=== PATIENT | female | born 1975 | race Caucasian/White ===

== ENCOUNTER 2017-06-06 19:45 | Inpatient (IN) | payer BC ==
[~2017-06-06] VITALS: Ht 30.5 cm; Wt 77.6 kg
[2017-06-06] MEDS ORDERED: HYDROcodone-ACET 10/325MG TAB PO PRN (20:45)
[2017-06-06] MEDS ORDERED: hydrALAZINE HCL 20 MG/ML VL IV PRN (20:45)
[2017-06-06] MEDS ORDERED: DOCUSATE SOD 100 MG CAP PO PRN (20:45)
[2017-06-06] MEDS ORDERED: ALPRAZolam 0.25 MG TAB PO PRN (20:45)
[2017-06-06] MEDS ORDERED: ACETAMINOPHEN 325 MG TAB PO PRN (20:45)
[2017-06-06] MEDS ORDERED: MORPHINE SULFATE 10 MG/ML INJ 1ML SDV IV PRN (21:00)
[2017-06-06] MEDS ORDERED: NITROGLYCERIN 0.4 MG SL TAB SL PRN (21:00)
[2017-06-06 22:00] VITALS: BP 112/67
[2017-06-07 05:00] VITALS: BP 94/56
[2017-06-07 05:59] LABS: Basophils # (auto) 0.1 uL; Basophils % (auto) 0.8 % (0.0-2.0); Eosinophils # (auto) 0.2 uL; Hematocrit 34.6 % (36.0-46.0); Hemoglobin 10.9 g/dL (12.2-16.2); Lymphocytes # (auto) 2.9 uL; Lymphocytes % (auto) 33.6 % (10.0-50.0); Mean Corpuscular Hemoglobin 22.4 pg (28.0-32.0); Mean Corpuscular Hgb Conc. 31.6 g/dL (32.0-36.0); Mean Corpuscular Volume 70.8 fL (80.0-100.0); Monocytes # (auto) 0.9 uL; Monocytes % (auto) 9.9 % (0.0-12.0); Neutrophils # (auto) 4.7 uL; Neutrophils % (auto) 53.7 % (37.0-80.0); Platelet Count (auto) 260 10^3/uL (140-450); Red Blood Cells 4.89 10^6/uL (4.0-5.20); White Blood Cell 8.7 10^3/uL (4.4-10.8)
[2017-06-07 06:15] LABS: INR 1.04 (0.9-1.15); Prothrombin Time 11.3 sec (9.37-12.3)
[2017-06-07 06:19] LABS: Albumin 3.4 g/dL (3.4-5.0); BUN/Creatinine Ratio 19.8; Calcium 8.7 mg/dL (8.5-10.1); Potassium 3.9 mmol/L (3.5-5.1)
[2017-06-07 06:22] LABS: Bilirubin, Total 0.3 mg/dL (0.2-1.0); Total Protein 6.9 g/dL (6.4-8.2)
[2017-06-07 08:00] VITALS: BP 104/63
[2017-06-07 09:00] VITALS: BP 104/63
[2017-06-07] MEDS ORDERED: LIDOCAINE 2%HCL (LOCAL ANESTH.) INJ 20ML MDV ONE ×3 (11:44→16:09)
[2017-06-07 13:00] VITALS: BP 119/85
[2017-06-07] MEDS: SODIUM CHLORIDE 0.9% 1,000 ML IV SCH ×2 (15:29→18:12)
[2017-06-07] MEDS ORDERED: fentaNYL CITRATE 100 MCG/2 ML VL ONE (15:38)
[2017-06-07] MEDS ORDERED: MIDAZOLAM HCL 1MG/1ML-2 ML VIAL ONE ×2 (15:39→15:53)
[2017-06-07] MEDS ORDERED: ONDANSETRON HCL 4 MG/2 ML VIAL ONE (15:39)
[2017-06-07] MEDS ORDERED: ISOPROTERENOL IV SCH (16:00)
[2017-06-07] MEDS ORDERED: IOHEXOL 350 MG/ML 100ML IJ ONE (16:14)
[2017-06-07] MEDS ORDERED: HYDROmorphone HCL 2 MG/ML VL ONE (16:17)
[2017-06-07] MEDS ORDERED: ISOPROTERENOL HCL INJECTION 1 MG in D5W 5% 250 ML IV SCH (16:28)
[2017-06-07] MEDS ORDERED: ASPirin 325 MG TAB PO ONE (18:15)
[2017-06-07] MEDS: MORPHINE SULFATE 10 MG/ML INJ 1ML SDV IV PRN (20:15)
[2017-06-07 22:00] VITALS: BP 127/71
[2017-06-08] MEDS ORDERED: VITAMINS A & D (TOPICAL) OINT 5GM TOP ONE (01:09)
[2017-06-08] MEDS ORDERED: MORPHINE SULF INJ 2 MG/ML SYRINGE 1ML ONE (01:09)
[2017-06-08] MEDS: MORPHINE SULFATE 10 MG/ML INJ 1ML SDV IV PRN (01:19)
[2017-06-08] MEDS: SODIUM CHLORIDE 0.9% 1,000 ML IV SCH (03:45)
[2017-06-08 04:49] VITALS: BP 111/69
[2017-06-08 09:00] VITALS: BP 101/62
[2017-06-08] MEDS ORDERED: ASPirin 325 MG TAB PO SCH (10:00)
[2017-06-08 13:00] VITALS: BP 98/51
[2017-06-08 15:42] VITALS: BP 98/51
== END 2017-06-08 17:35 | disposition home or self-care (01) | DRG 274 ==
LOC: TELE-EAST 19:45
PROVIDERS: ADMIT Internal Medicine; ATTEND Internal Medicine
PROC: 02583ZZ Destruction of Conduction Mechanism, Percutaneous Approach (ICD-10-PCS; principal; 2017-06-07)
PROC: 02K83ZZ Map Conduction Mechanism, Percutaneous Approach (ICD-10-PCS; 2017-06-07)
PROC: 4A023FZ Measurement of Cardiac Rhythm, Percutaneous Approach (ICD-10-PCS; 2017-06-07)
PROC: 4A0234Z Measurement of Cardiac Electrical Activity, Percutaneous Approach (ICD-10-PCS; 2017-06-07)
DX: I49.3 Ventricular premature depolarization (principal); I47.2 Ventricular tachycardia; E87.6 Hypokalemia; I44.7 Left bundle-branch block, unspecified; Z82.49 Family history of ischemic heart disease and other diseases of the circulatory system; Z88.8 Allergy status to other drugs, medicaments and biological substances
CPT/HCPCS: 36415; 80053; 84702; 85025; 85610; 85730; 86850; 86900; 86901; 87081; 93005; 93654; 99152; J2250; J2405; J7060

== ENCOUNTER 2020-10-02 15:29 | Emergency (ER) | payer BC ==
[~2020-10-02] VITALS: Ht 167.6 cm; Wt 77.1 kg
[2020-10-02 16:32] LABS: Basophils # (auto) 0.1 10 ^3/uL (0-0.2); Eosinophils # (auto) 0 10 ^3/uL (0-0.8); Mean Corpuscular Hgb Conc. 31.3 g/dL (32.0-36.0); Neutrophils # (auto) 5.4 10 ^3/uL (1.6-8.6); Platelet Count (auto) 223 10^3/uL (140-450); Red Cell Distribution Width 19.1 % (11.8-14.3)
[2020-10-02 16:34] LABS: Basophils % (auto) 0.8 % (0.0-2.0); Eosinophils % (auto) 0.4 % (0.0-7.0); Hematocrit 27.1 % (36.0-46.0); Hemoglobin 8.5 g/dL (12.2-16.2); Lymphocytes # (auto) 0.7 10 ^3/uL (0.4-5.4); Lymphocytes % (auto) 10.9 % (10.0-50.0); Mean Corpuscular Hemoglobin 19.9 pg (28.0-32.0); Mean Corpuscular Volume 63.7 fL (80.0-100.0); Monocytes # (auto) 0.4 10 ^3/uL (0-1.3); Monocytes % (auto) 5.8 % (0.0-12.0); Neutrophils % (auto) 82.1 % (37.0-80.0); Red Blood Cells 4.26 10^6/uL (4.0-5.20); White Blood Cell 6.6 10^3/uL (4.4-10.8)
[2020-10-02 16:48] LABS: Albumin 3.3 g/dL (3.4-5.0); Potassium 3.7 mmol/L (3.5-5.1)
[2020-10-02 16:58] LABS: BUN/Creatinine Ratio 18.9; Bilirubin, Total 0.1 mg/dL (0.2-1.0); Total Protein 6.5 g/dL (6.4-8.2)
[2020-10-02 17:16] LABS: Urine Bacteria FEW /hpf (None Seen); Urine Blood Negative /uL (Negative); Urine Specific Gravity 1.007 (1.001-1.035); Urine WBC <1 /hpf (0 - 5)
[2020-10-02 17:27] LABS: Amphetamine Screen, Urine NEGATIVE (NEGATIVE); Barbiturate Scree,Urine NEGATIVE (NEGATIVE); Benzodiazephine Screen, Urine NEGATIVE (NEGATIVE); Cannabinoid Screen, Urine NEGATIVE (NEGATIVE); Cocaine Screen, Urine NEGATIVE (NEGATIVE); Opiate Scree,Urine NEGATIVE (NEGATIVE); Phencyclidine Screen, Urine NEGATIVE (NEGATIVE)
[2020-10-02 17:54] LABS: Salicylate < 1.7 mg/dL (2.8-20.0)
[2020-10-02 17:57] LABS: Acetaminophen < 2.0 ug/mL (10-30)
[2020-10-03] MEDS ORDERED: ACETAMINOPHEN 325 MG TAB PO ONE (00:30)
[2020-10-03] MEDS ORDERED: hydrOXYchloroQUINE SULFATE 200 MG TAB PO ONE (10:15)
[2020-10-04 09:31] VITALS: BP 138/68
== END 2020-10-04 15:20 | disposition home or self-care (01) ==
LOC: ER 15:29 → EDBD 15:29 → ER 10-04 15:20
DX: T14.91XA Suicide attempt, initial encounter (principal); T65.91XA Toxic effect of unspecified substance, accidental (unintentional), initial encounter; Z20.822 Contact with and (suspected) exposure to COVID-19; Y92.89 Other specified places as the place of occurrence of the external cause
CPT/HCPCS: 36415; 80053; 80307; 80320; 80329; 81001; 85025; 87426; 93005

== ENCOUNTER 2021-02-14 18:50 | Inpatient (IN) | payer BC ==
[~2021-02-14] VITALS: Ht 167.6 cm; Wt 81.6 kg
[2021-02-14 20:03] LABS: Eosinophils # (auto) 0 10 ^3/uL (0-0.8); Mean Corpuscular Hemoglobin 23.5 pg (28.0-32.0); Monocytes # (auto) 0.2 10 ^3/uL (0-1.3); Neutrophils # (auto) 5.5 10 ^3/uL (1.6-8.6)
[2021-02-14 20:04] LABS: Basophils # (auto) 0.1 10 ^3/uL (0-0.2); Basophils % (auto) 1.3 % (0.0-2.0); Eosinophils % (auto) 0.3 % (0.0-7.0); Hematocrit 34.7 % (36.0-46.0); Lymphocytes % (auto) 14.6 % (10.0-50.0); Mean Corpuscular Hgb Conc. 31.7 g/dL (32.0-36.0); Mean Corpuscular Volume 74.3 fL (80.0-100.0); Monocytes % (auto) 3.4 % (0.0-12.0); Neutrophils % (auto) 80.4 % (37.0-80.0); Red Blood Cells 4.67 10^6/uL (4.0-5.20); White Blood Cell 6.8 10^3/uL (4.4-10.8)
[2021-02-14 20:21] LABS: Red Cell Distribution Width 22.5 % (11.8-14.3)
[2021-02-14 20:52] LABS: Albumin 3.6 g/dL (3.4-5.0); Calcium 8.8 mg/dL (8.5-10.1); Potassium 3.9 mmol/L (3.5-5.1)
[2021-02-14 20:57] LABS: Bilirubin, Total 0.3 mg/dL (0.2-1.0); Blood Alcohol < 3.0 mg/dL (0-5); Magnesium 1.9 mg/dL (1.6-2.6); Total Protein 6.9 g/dL (6.4-8.2)
[2021-02-14] MEDS ORDERED: LORazepam 2MG/ML-1ML VIAL ONE ×2 (21:46→22:32)
[2021-02-14] MEDS: LORazepam 2MG/ML-1ML VIAL IV PRN (22:33)
[2021-02-14 23:47] LABS: Lactic Acid w/Reflex 2.2 mmol/L (0.4-2.0)
[2021-02-15] MEDS: SODIUM CHLORIDE 0.9% 1,000 ML IV SCH ×4 (06:00→22:00)
[2021-02-15 06:56] LABS: Basophils # (auto) 0.1 10 ^3/uL (0-0.2); Eosinophils # (auto) 0.1 10 ^3/uL (0-0.8); Hemoglobin 10.7 g/dL (12.2-16.2)
[2021-02-15 07:00] LABS: Basophils % (auto) 1.1 % (0.0-2.0); Eosinophils % (auto) 1.5 % (0.0-7.0); Hematocrit 32.5 % (36.0-46.0); Lymphocytes # (auto) 2.2 10 ^3/uL (0.4-5.4); Lymphocytes % (auto) 30.4 % (10.0-50.0); Mean Corpuscular Hemoglobin 24.8 pg (28.0-32.0); Mean Corpuscular Hgb Conc. 33.1 g/dL (32.0-36.0); Mean Corpuscular Volume 74.9 fL (80.0-100.0); Monocytes % (auto) 13.7 % (0.0-12.0); Neutrophils # (auto) 3.8 10 ^3/uL (1.6-8.6); Neutrophils % (auto) 53.3 % (37.0-80.0); Red Blood Cells 4.33 10^6/uL (4.0-5.20); Red Cell Distribution Width 22.2 % (11.8-14.3); White Blood Cell 7.1 10^3/uL (4.4-10.8)
[2021-02-15 07:04] LABS: Albumin 3.2 g/dL (3.4-5.0); Calcium 8.2 mg/dL (8.5-10.1); Potassium 3.7 mmol/L (3.5-5.1)
[2021-02-15 07:09] LABS: BUN/Creatinine Ratio 15.3; Bilirubin, Total 0.3 mg/dL (0.2-1.0); Total Protein 6.1 g/dL (6.4-8.2)
[2021-02-15 09:00] VITALS: BP 111/75
[2021-02-15 13:00] VITALS: BP 127/76
[2021-02-15] MEDS: LORazepam 2MG/ML-1ML VIAL IV PRN ×2 (13:00→17:07)
[2021-02-15] MEDS ORDERED: HYDR200T36 PO (16:30)
[2021-02-15] MEDS ORDERED: GABA-339 PO (16:30)
[2021-02-15] MEDS ORDERED: PRED10TA PO (16:30)
[2021-02-15 17:00] VITALS: BP 106/67
[2021-02-15 22:00] VITALS: BP 120/73
[2021-02-16 05:00] VITALS: BP 111/72
[2021-02-16 05:37] LABS: Basophils # (auto) 0.1 10 ^3/uL (0-0.2); Eosinophils # (auto) 0.1 10 ^3/uL (0-0.8); Lymphocytes # (auto) 2.2 10 ^3/uL (0.4-5.4); Monocytes # (auto) 0.8 10 ^3/uL (0-1.3); White Blood Cell 7.2 10^3/uL (4.4-10.8)
[2021-02-16 05:39] LABS: Basophils % (auto) 1.2 % (0.0-2.0); Eosinophils % (auto) 1.3 % (0.0-7.0); Hematocrit 36.1 % (36.0-46.0); Hemoglobin 11.6 g/dL (12.2-16.2); Lymphocytes % (auto) 30.9 % (10.0-50.0); Mean Corpuscular Hemoglobin 23.8 pg (28.0-32.0); Mean Corpuscular Hgb Conc. 32.2 g/dL (32.0-36.0); Mean Corpuscular Volume 74.1 fL (80.0-100.0); Monocytes % (auto) 11.7 % (0.0-12.0); Neutrophils % (auto) 54.9 % (37.0-80.0); Red Blood Cells 4.88 10^6/uL (4.0-5.20); Red Cell Distribution Width 21.7 % (11.8-14.3)
[2021-02-16] MEDS: LORazepam 2MG/ML-1ML VIAL IV PRN ×2 (05:48→05:53)
[2021-02-16] MEDS: SODIUM CHLORIDE 0.9% 1,000 ML IV SCH ×3 (06:00→22:00)
[2021-02-16 06:01] LABS: Albumin 3.4 g/dL (3.4-5.0); BUN/Creatinine Ratio 14.6; Calcium 8.6 mg/dL (8.5-10.1)
[2021-02-16 06:03] LABS: Bilirubin, Total 0.4 mg/dL (0.2-1.0); Total Protein 6.4 g/dL (6.4-8.2)
[2021-02-16 09:00] VITALS: BP 136/90
[2021-02-16] MEDS ORDERED: GADOTERATE MEG 7.5 MMOL/15ml INJ (0.5MMOL/ml) IV ONE (10:45)
[2021-02-16 13:00] VITALS: BP 115/80
[2021-02-16] MEDS: MORPHINE SULFATE INJECTION 2 MG/ML SYRG IV PRN ×2 (14:06→22:19)
[2021-02-16 17:00] VITALS: BP 123/84
[2021-02-16] MEDS: ACETAMINOPHEN 500 MG TAB PO PRN (18:28)
[2021-02-16] MEDS: GABAPENTIN 300 MG CAP PO SCH (21:22)
[2021-02-16 22:00] VITALS: BP 114/80
[2021-02-17] MEDS: LORazepam 2MG/ML-1ML VIAL IV PRN ×6 (02:50→20:53)
[2021-02-17] MEDS: SODIUM CHLORIDE 0.9% 1,000 ML IV SCH ×3 (04:01→13:19)
[2021-02-17] MEDS: GABAPENTIN 300 MG CAP PO SCH ×3 (06:22→21:00)
[2021-02-17 06:50] LABS: Basophils # (auto) 0.1 10 ^3/uL (0-0.2); Basophils % (auto) 0.9 % (0.0-2.0); Eosinophils # (auto) 0.1 10 ^3/uL (0-0.8); Hemoglobin 11.8 g/dL (12.2-16.2); Monocytes # (auto) 0.7 10 ^3/uL (0-1.3); White Blood Cell 6.4 10^3/uL (4.4-10.8)
[2021-02-17 06:52] LABS: Eosinophils % (auto) 1.6 % (0.0-7.0); Hematocrit 35.9 % (36.0-46.0); Lymphocytes % (auto) 31.4 % (10.0-50.0); Mean Corpuscular Hemoglobin 24.5 pg (28.0-32.0); Mean Corpuscular Hgb Conc. 32.9 g/dL (32.0-36.0); Mean Corpuscular Volume 74.6 fL (80.0-100.0); Monocytes % (auto) 10.6 % (0.0-12.0); Neutrophils # (auto) 3.5 10 ^3/uL (1.6-8.6); Neutrophils % (auto) 55.5 % (37.0-80.0); Nucleated Red Blood Cells % 0.1 %; Red Blood Cells 4.81 10^6/uL (4.0-5.20); Red Cell Distribution Width 21.5 % (11.8-14.3)
[2021-02-17 06:59] LABS: BUN/Creatinine Ratio 16.7; Calcium 8.1 mg/dL (8.5-10.1); Potassium 3.7 mmol/L (3.5-5.1)
[2021-02-17 09:00] VITALS: BP 137/86
[2021-02-17] MEDS: predniSONE 5 MG TAB PO SCH (09:37)
[2021-02-17] MEDS ORDERED: hydrOXYchloroQUINE SULFATE 200 MG TAB PO SCH (10:00)
[2021-02-17 13:00] VITALS: BP 107/73
[2021-02-17 16:39] VITALS: BP 122/89
[2021-02-17] MEDS: ENOXAPARIN SOD 40 MG/0.4 ML SYRINGE SC SCH (18:40)
[2021-02-17 22:00] VITALS: BP 144/63
[2021-02-18] MEDS: LORazepam 2MG/ML-1ML VIAL IV PRN ×9 (02:10→19:10)
[2021-02-18 05:00] VITALS: BP 150/82
[2021-02-18] MEDS: SODIUM CHLORIDE 0.9% 1,000 ML IV SCH ×4 (06:30→22:00)
[2021-02-18] MEDS: GABAPENTIN 300 MG CAP PO SCH ×3 (06:30→22:12)
[2021-02-18 09:00] VITALS: BP 141/90
[2021-02-18] MEDS: hydrOXYchloroQUINE SULFATE 200 MG TAB PO SCH (10:59)
[2021-02-18] MEDS: predniSONE 5 MG TAB PO SCH (10:59)
[2021-02-18] MEDS: ENOXAPARIN SOD 40 MG/0.4 ML SYRINGE SC SCH (10:59)
[2021-02-18 13:00] VITALS: BP 130/88
[2021-02-18 17:00] VITALS: BP 123/91
[2021-02-18 22:00] VITALS: BP 118/83
[2021-02-18] MEDS: MORPHINE SULFATE INJECTION 2 MG/ML SYRG IV PRN ×2 (23:43)
[2021-02-19 05:00] VITALS: BP 112/77
[2021-02-19] MEDS: MORPHINE SULFATE INJECTION 2 MG/ML SYRG IV PRN (05:00)
[2021-02-19] MEDS: SODIUM CHLORIDE 0.9% 1,000 ML IV SCH ×2 (05:00→14:00)
[2021-02-19] MEDS: GABAPENTIN 300 MG CAP PO SCH ×3 (05:38→22:20)
[2021-02-19] MEDS: LORazepam 2MG/ML-1ML VIAL IV PRN ×6 (07:29→19:50)
[2021-02-19 08:54] VITALS: BP 114/80
[2021-02-19] MEDS: hydrOXYchloroQUINE SULFATE 200 MG TAB PO SCH (10:13)
[2021-02-19] MEDS: ENOXAPARIN SOD 40 MG/0.4 ML SYRINGE SC SCH (10:13)
[2021-02-19] MEDS: predniSONE 5 MG TAB PO SCH (10:13)
[2021-02-19 13:03] VITALS: BP 98/70
[2021-02-19] MEDS: ACETAMINOPHEN 500 MG TAB PO PRN (14:47)
[2021-02-19 16:50] VITALS: BP 112/77
[2021-02-19] MEDS ORDERED: DULO60CA PO (20:13)
[2021-02-19 22:00] VITALS: BP 114/80
[2021-02-19] MEDS: DOCUSATE SOD 100 MG CAP PO PRN (22:21)
[2021-02-20] MEDS: MORPHINE SULFATE INJECTION 2 MG/ML SYRG IV PRN ×4 (00:56→17:48)
[2021-02-20 05:00] VITALS: BP 95/61
[2021-02-20] MEDS: GABAPENTIN 300 MG CAP PO SCH ×3 (06:45→21:31)
[2021-02-20] MEDS: LORazepam 2MG/ML-1ML VIAL IV PRN ×4 (07:39→18:09)
[2021-02-20] MEDS: predniSONE 5 MG TAB PO SCH (08:27)
[2021-02-20] MEDS: DULoxetine HCL 30 MG CAP PO SCH (08:28)
[2021-02-20] MEDS: ENOXAPARIN SOD 40 MG/0.4 ML SYRINGE SC SCH (08:29)
[2021-02-20] MEDS: hydrOXYchloroQUINE SULFATE 200 MG TAB PO SCH (08:29)
[2021-02-20 09:00] VITALS: BP 99/71
[2021-02-20] MEDS ORDERED: PATIENTS OWN MEDICATION (Duloxetine Hcl (Cymbalta) 1 CAP) PO SCH (10:00)
[2021-02-20 13:00] VITALS: BP 97/65
[2021-02-20 16:11] LABS: Eosinophils # (auto) 0 10 ^3/uL (0-0.8); Eosinophils % (auto) 0.3 % (0.0-7.0); Lymphocytes # (auto) 1.3 10 ^3/uL (0.4-5.4); Monocytes # (auto) 0.5 10 ^3/uL (0-1.3); Nucleated Red Blood Cells % 0.1 %
[2021-02-20 16:13] LABS: Basophils # (auto) 0 10 ^3/uL (0-0.2); Basophils % (auto) 0.6 % (0.0-2.0); Hematocrit 40.1 % (36.0-46.0); Hemoglobin 12.9 g/dL (12.2-16.2); Mean Corpuscular Hemoglobin 24.1 pg (28.0-32.0); Mean Corpuscular Hgb Conc. 32.2 g/dL (32.0-36.0); Mean Corpuscular Volume 74.7 fL (80.0-100.0); Neutrophils % (auto) 77.1 % (37.0-80.0); Red Blood Cells 5.36 10^6/uL (4.0-5.20); Red Cell Distribution Width 21.4 % (11.8-14.3); White Blood Cell 7.8 10^3/uL (4.4-10.8)
[2021-02-20 16:27] LABS: Calcium 9.4 mg/dL (8.5-10.1); Magnesium 2.5 mg/dL (1.6-2.6); Potassium 4.5 mmol/L (3.5-5.1)
[2021-02-20 16:30] LABS: BUN/Creatinine Ratio 13.5
[2021-02-20 16:54] VITALS: BP 112/79
[2021-02-20 22:00] VITALS: BP 107/75
[2021-02-21] MEDS: MORPHINE SULFATE INJECTION 2 MG/ML SYRG IV PRN ×4 (02:05→22:52)
[2021-02-21 05:00] VITALS: BP 108/69
[2021-02-21] MEDS: GABAPENTIN 300 MG CAP PO SCH ×3 (05:40→22:52)
[2021-02-21] MEDS: LORazepam 2MG/ML-1ML VIAL IV PRN ×3 (06:34→13:48)
[2021-02-21 07:26] LABS: Basophils # (auto) 0.1 10 ^3/uL (0-0.2); Eosinophils # (auto) 0.2 10 ^3/uL (0-0.8); Hematocrit 37.9 % (36.0-46.0); Mean Corpuscular Volume 74.8 fL (80.0-100.0); Monocytes # (auto) 0.9 10 ^3/uL (0-1.3); Neutrophils # (auto) 2.8 10 ^3/uL (1.6-8.6)
[2021-02-21 07:29] LABS: Basophils % (auto) 0.8 % (0.0-2.0); Eosinophils % (auto) 2.9 % (0.0-7.0); Hemoglobin 12.3 g/dL (12.2-16.2); Lymphocytes # (auto) 2.8 10 ^3/uL (0.4-5.4); Lymphocytes % (auto) 41.6 % (10.0-50.0); Mean Corpuscular Hemoglobin 24.4 pg (28.0-32.0); Mean Corpuscular Hgb Conc. 32.6 g/dL (32.0-36.0); Monocytes % (auto) 13.1 % (0.0-12.0); Neutrophils % (auto) 41.6 % (37.0-80.0); Red Blood Cells 5.06 10^6/uL (4.0-5.20); White Blood Cell 6.8 10^3/uL (4.4-10.8)
[2021-02-21 07:34] LABS: Potassium 3.4 mmol/L (3.5-5.1)
[2021-02-21 07:39] LABS: BUN/Creatinine Ratio 13.3; Calcium 9.2 mg/dL (8.5-10.1); Magnesium 2.2 mg/dL (1.6-2.6)
[2021-02-21 09:00] VITALS: BP 101/70
[2021-02-21] MEDS: DULoxetine HCL 30 MG CAP PO SCH (12:02)
[2021-02-21] MEDS: predniSONE 5 MG TAB PO SCH (12:02)
[2021-02-21] MEDS: hydrOXYchloroQUINE SULFATE 200 MG TAB PO SCH (12:02)
[2021-02-21] MEDS: ENOXAPARIN SOD 40 MG/0.4 ML SYRINGE SC SCH (12:03)
[2021-02-21 13:00] VITALS: BP 108/75
[2021-02-21 16:14] VITALS: BP 118/80
[2021-02-21 22:00] VITALS: BP 109/74
[2021-02-22] MEDS: ACETAMINOPHEN 500 MG TAB PO PRN (04:37)
[2021-02-22 05:00] VITALS: BP 109/63
[2021-02-22] MEDS: GABAPENTIN 300 MG CAP PO SCH ×3 (05:29→22:04)
[2021-02-22 05:40] LABS: Eosinophils # (auto) 0.1 10 ^3/uL (0-0.8); Monocytes # (auto) 0.7 10 ^3/uL (0-1.3); Neutrophils # (auto) 3.5 10 ^3/uL (1.6-8.6); Red Blood Cells 5.26 10^6/uL (4.0-5.20)
[2021-02-22 05:44] LABS: Basophils # (auto) 0.1 10 ^3/uL (0-0.2); Eosinophils % (auto) 1.5 % (0.0-7.0); Hematocrit 39.7 % (36.0-46.0); Lymphocytes # (auto) 2.3 10 ^3/uL (0.4-5.4); Lymphocytes % (auto) 34.1 % (10.0-50.0); Mean Corpuscular Hemoglobin 24.7 pg (28.0-32.0); Mean Corpuscular Hgb Conc. 32.7 g/dL (32.0-36.0); Mean Corpuscular Volume 75.5 fL (80.0-100.0); Monocytes % (auto) 10.9 % (0.0-12.0); Neutrophils % (auto) 52.5 % (37.0-80.0); Nucleated Red Blood Cells % 0.1 %; Red Cell Distribution Width 20.3 % (11.8-14.3); White Blood Cell 6.7 10^3/uL (4.4-10.8)
[2021-02-22 06:14] LABS: BUN/Creatinine Ratio 14.3; Calcium 8.9 mg/dL (8.5-10.1); Magnesium 2.2 mg/dL (1.6-2.6); Potassium 4.3 mmol/L (3.5-5.1)
[2021-02-22] MEDS: MORPHINE SULFATE INJECTION 2 MG/ML SYRG IV PRN ×3 (07:23→22:04)
[2021-02-22] MEDS ORDERED: TOPI50TA53 PO (07:35)
[2021-02-22] MEDS ORDERED: PANT40TA2 PO (07:35)
[2021-02-22] MEDS ORDERED: TRAZ50TA2 PO (07:35)
[2021-02-22 09:00] VITALS: BP 115/72
[2021-02-22] MEDS: LORazepam 2MG/ML-1ML VIAL IV PRN ×3 (09:04→15:49)
[2021-02-22] MEDS: DULoxetine HCL 30 MG CAP PO SCH (10:39)
[2021-02-22] MEDS: ENOXAPARIN SOD 40 MG/0.4 ML SYRINGE SC SCH (10:39)
[2021-02-22] MEDS: predniSONE 5 MG TAB PO SCH (10:40)
[2021-02-22] MEDS: hydrOXYchloroQUINE SULFATE 200 MG TAB PO SCH (10:40)
[2021-02-22 13:00] VITALS: BP 92/66
[2021-02-22] MEDS: DOCUSATE SOD 100 MG CAP PO PRN (17:02)
[2021-02-22 17:15] VITALS: BP 118/64
[2021-02-22] MEDS: ONDANSETRON HCL 4 MG/2 ML VIAL IV PRN (17:41)
[2021-02-23 05:00] VITALS: BP 113/70
[2021-02-23] MEDS: GABAPENTIN 300 MG CAP PO SCH ×3 (06:07→22:02)
[2021-02-23] MEDS: MORPHINE SULFATE INJECTION 2 MG/ML SYRG IV PRN ×2 (06:35→17:05)
[2021-02-23 09:00] VITALS: BP 116/71
[2021-02-23] MEDS: DULoxetine HCL 30 MG CAP PO SCH (10:20)
[2021-02-23] MEDS: predniSONE 5 MG TAB PO SCH (10:20)
[2021-02-23] MEDS: hydrOXYchloroQUINE SULFATE 200 MG TAB PO SCH (10:20)
[2021-02-23] MEDS: ENOXAPARIN SOD 40 MG/0.4 ML SYRINGE SC SCH (10:21)
[2021-02-23 13:00] VITALS: BP 83/51
[2021-02-23 17:00] VITALS: BP 110/71
[2021-02-23] MEDS: ONDANSETRON HCL 4 MG/2 ML VIAL IV PRN (20:07)
[2021-02-23 22:00] VITALS: BP 104/67
[2021-02-24] MEDS: MORPHINE SULFATE INJECTION 2 MG/ML SYRG IV PRN ×2 (02:59→12:42)
[2021-02-24 05:00] VITALS: BP 98/65
[2021-02-24] MEDS: GABAPENTIN 300 MG CAP PO SCH ×2 (06:14→14:00)
[2021-02-24] MEDS: DOCUSATE SOD 100 MG CAP PO PRN (06:19)
[2021-02-24 08:32] VITALS: BP 109/73
[2021-02-24] MEDS: hydrOXYchloroQUINE SULFATE 200 MG TAB PO SCH (09:45)
[2021-02-24] MEDS: predniSONE 5 MG TAB PO SCH (09:45)
[2021-02-24] MEDS: ENOXAPARIN SOD 40 MG/0.4 ML SYRINGE SC SCH (09:45)
[2021-02-24] MEDS: DULoxetine HCL 30 MG CAP PO SCH (09:46)
[2021-02-24 12:50] VITALS: BP 93/64
[2021-02-24 12:54] VITALS: BP 109/73
[2021-02-24 13:30] VITALS: BP 104/67
== END 2021-02-24 15:00 | disposition home health service (06) | DRG 101 ==
LOC: ER 18:50 → EDBD 18:50 → TELE 21:51 → TELE-CENTR 02-15 08:56
PROVIDERS: ADMIT Internal Medicine; ATTEND Internal Medicine
DX: R56.9 Unspecified convulsions (principal); R55 Syncope and collapse; T50.B95A Adverse effect of other viral vaccines, initial encounter; F32.5 Major depressive disorder, single episode, in full remission; K21.9 Gastro-esophageal reflux disease without esophagitis; F44.9 Dissociative and conversion disorder, unspecified; Z82.49 Family history of ischemic heart disease and other diseases of the circulatory system; Z90.49 Acquired absence of other specified parts of digestive tract; Y92.89 Other specified places as the place of occurrence of the external cause; Z91.51 Personal history of suicidal behavior; Z20.822 Contact with and (suspected) exposure to COVID-19
CPT/HCPCS: 36415; 70450; 70551; 70553; 72142; 80048; 80053; 80320; 82550; 82553; 83605; 83735; 85025; 87426; 93005; 95819; 97163; 99291; G0378; J2405; J7060